=== PATIENT | female | born 1950 | race Caucasian/White ===

== ENCOUNTER → 2018-09-03 | Outpatient (CLI) | payer BC ==
[2018-09-03 16:34] LABS: African American GFR (CKD) 87.8 (60.0-200.0); Albumin 4.7 g/dL (3.80-4.90); Albumin/Globulin Ratio 2.14 (1.60-3.17); Anion Gap 11.2 mmol/L (4.00-12.00); Calcium 9.8 mg/dL (8.7-10.3); Carbon Dioxide 23.8 mmol/L (21.6-31.8); Globulin 2.2 g/dL (1.6-3.3); Potassium 4.5 mmol/L (3.5-5.5); Total Protein 6.9 g/dL (6.2-8.2)
[2018-09-03 16:36] LABS: Vitamin D 25 Hydroxy 49.2 ng/mL (30.0-100.0)
== END | disposition home or self-care (01) ==
LOC: LABWHC1 08:36
PROVIDERS: ATTEND Internal Medicine Endocrinology, Diabetes & Metabolism
DX: E21.0 Primary hyperparathyroidism (principal)
CPT/HCPCS: 36415; 80053; 82306; 83970

== ENCOUNTER → 2018-09-15 | Outpatient (CLI) | payer BC ==
--- NOTE | 2018-09-15 14:59 | US ---
EXAMINATION TYPE: US thyroid st tissue head/neck DATE OF EXAM: 09/15/2018 COMPARISON: NONE CLINICAL HISTORY: E21.0 Hyperparathyroidism. Patient stated had sub total thyroidectomy at age 7, wit h radioactive iodine at age 11. GLAND SIZE: Remnant tissue is observed bilaterally Right Lobe: 2.4 x 0.7 x 0.8 cm Overall Parenchyma: heterogenous Left Lobe: 2.4 x 0.6 x 0.6 cm Overall Parenchyma: heterogeneous Isthmus Thickness: 0.1 cm NODULES RIGHT: # of nodules measured on right: 0 LEFT: # of nodules measured on left: 0 ISTHMUS: # of nodules measured in the isthmus: 0 ` Bilateral neck scanned: no evidence of lymphadenopathy and no parathyroid nodules are seen. IMPRESSION: Minimal atrophic thyroid tissue remains in this patient with a history of subtotal thyroidectomy. No discrete or suspicious thyroid nodule.
--- NOTE | 2018-09-16 07:04 | BD ---
EXAMINATION TYPE: Axial Bone Density DATE OF EXAM: 09/15/2018 COMPARISON: 11.03.2000 CLINICAL HISTORY: 67 YR OLD FEMALE...ICD-10 CODE: E21.0 HYPERPARATHYROIDISM Height: 62.5 Weight: 205 FRAX RISK QUESTIONS: Secondary Osteoporosis: YES 2. Hyperthyroidism: YES RISK FACTORS HISTORY OF: Active: YES Postmenopausal woman: YES, AT AGE 51 Lost more than 2 inches in height since high school: YES Hyperparathyroidism: YES MEDICATIONS: Thyroid Medications: YES, TRINTELLIX, SINCE AGE 11 Additional Medications: VIT D, ANTI-ANXIETY MEDS, REFLUX MEDS PRN, CALCIUM PRN , TUMS Additional History: CELIAC DISEASE, HYPERPARATHYROIDISM, OSTEOARTHRITIS EXAM MEASUREMENTS: Bone mineral densitometry was performed using the [employer] System. Bone mineral density as measured about the Lumbar spine is: ----- L1-L4(G/cm2): 1.730 T Score Values are as follows: ----- L1: 2.1 ----- L2: 3.9 ----- L3: 5.9 ----- L4: 6.4 ----- L1-L4: 4.6 Bone mineral density has: Increased 21.1% since study of: 11.03.2000 Bone mineral density about the R hip (g/cm2): 1.130 Bone mineral density about the L hip (g/cm2): 1.207 T Score values are as follows: -----R Neck: -0.1 -----L Neck: 0.7 -----R Total: 1.0 -----L Total: 1.6 Bone mineral density has: Decreased -2.3% since study of: 11.03.2000 FRAX%s: THERE IS A 6.6% CHANCE FOR A MAJOR OSTEOPOROTIC FX AND A 0.3% FOR HIP FX....PROBABILITY FOR FX IN 10 YRS TIME IMPRESSION: Normal (Values between +1 and -1 indicate normal bone mass). Consider repeating this study in 5 year s or sooner if there is some new clinical indication. NOTE: T-SCORE=SD OF THE YOUNG ADULT MEAN.
== END | disposition home or self-care (01) ==
LOC: RADUSWWP 14:13
PROVIDERS: ATTEND Internal Medicine Endocrinology, Diabetes & Metabolism
DX: E03.4 Atrophy of thyroid (acquired) (principal); E21.0 Primary hyperparathyroidism
CPT/HCPCS: 76536; 77080

== ENCOUNTER → 2020-02-25 | Outpatient (CLI) | payer MEDICARE, BC ==
[2020-02-25 13:08] LABS: Basophils # (A) 0.1 k/uL (0-0.2); Basophils % (A) 1 %; Eosinophils # (A) 0.3 k/uL (0-0.7); Eosinophils % (A) 4 %; HCT 47.2 % (34.0-46.0); HGB 15.2 gm/dL (11.4-16.0); Lymphocytes % (A) 30 %; MCH 29.3 pg (25.0-35.0); MCHC 32.3 g/dL (31.0-37.0); MCV 90.8 fL (80.0-100.0); Mean Platelet Volume 7.9; Monocytes # (A) 0.3 k/uL (0-1.0); Monocytes % (A) 5 %; Neutrophils # (A) 3.8 k/uL (1.3-7.7); Neutrophils % (A) 59 %; Platelet Count 233 k/uL (150-450); RDW 13.8 % (11.5-15.5); WBC 6.5 k/uL (3.8-10.6)
[2020-02-25 13:39] LABS: Anisocytosis (M) Present; Poikilocytosis (M) Present
== END | disposition home or self-care (01) ==
LOC: LABWHC1 12:06
PROVIDERS: ATTEND Family Medicine
DX: E21.3 Hyperparathyroidism, unspecified (principal); D75.89 Other specified diseases of blood and blood-forming organs; K90.0 Celiac disease
CPT/HCPCS: 36415; 82330; 83516; 83970; 85025